=== PATIENT | female | born 1995 | race Caucasian/White ===

== ENCOUNTER 2017-04-07 21:03 | Outpatient (CLI) | payer OTHER ==
[~2017-04-07] VITALS: Ht 154.9 cm; Wt 73.9 kg
[~2017-04-07 21:03] MED LIST: ADDERALL20 MG PO; HYCODAN SYRUP480 ML PO; MOTRIN600 MG PO; PEN-VEE K,VEET500 MG PO; PREDNISONE50 MG PO
[2017-04-07 21:17] VITALS: BP 131/80
[2017-04-07 21:32] VITALS: BP 115/80
[2017-04-07 21:46] VITALS: BP 119/74
== END 2017-04-07 22:25 | disposition home or self-care (01) ==
LOC: LDRP-OP 21:03 → 2WEST 21:04 → LDRP-OP 05-22 15:36
DX: O36.8130 Decreased fetal movements, third trimester, not applicable or unspecified (principal); Z3A.38 38 weeks gestation of pregnancy
CPT/HCPCS: 59025; G0378

== ENCOUNTER 2017-04-20 20:35 | Inpatient (IN) | payer OTHER ==
[~2017-04-20] VITALS: Ht 154.9 cm; Wt 75.3 kg
[2017-04-20 21:04] VITALS: BP 126/82
[2017-04-20 21:19] VITALS: BP 130/90
[2017-04-20 21:35] VITALS: BP 132/81
[2017-04-20 21:49] VITALS: BP 134/87
[2017-04-20 22:55] VITALS: BP 130/78
[2017-04-20 23:42] VITALS: BP 129/79
[2017-04-21 06:33] LABS: BASOPHIL COUNT 0.1 K/uL (0-0.1); EOSINOPHIL (%) 0.5 % (0-5); EOSINOPHIL COUNT 0.1 K/uL (0-0.3); HEMATOCRIT 34.3 % (36.0-46.0); IMMATURE GRANULOCYTE (%) 0.7 % (0.0-0.7); IMMATURE GRANULOCYTE COUNT 0.1 K/uL; INSTRUMENT ABS NEUTROPHIL CT 14.5 K/uL; MCH 27.7 PG (29.0-34.0); MCHC 32.9 G/DL (30.0-36.0); MCV 84.1 FL (83-99); MEAN PLAT.VOLUME 11.9 uM^3 (9.5-12.4); MONOCYTE (%) 6.6 % (3-12); MONOCYTE COUNT 1.3 K/uL (0-0.8); NEUTROPHIL (%) 76.3 % (45-76); NEUTROPHIL COUNT 14.5 K/uL (1.8-6.4); PLATELET COUNT 361 K/uL (156-360); RBC DIS.WIDTH-CV 16.1 % (11.8-14.6); RBC DIS.WIDTH-SD 47.6 % (39-53); RED BLOOD COUNT 4.08 M/uL (3.80-5.20)
[2017-04-21 08:11] LABS: AMPHETAMINES QUANT VALUE 0 NG/ML; BARBITUATES QUANT VALUE 0 NG/ML; BENZODIAZEPINES QUANT VALUE 0 NG/ML; BENZODIAZEPINES, URINE SCREEN Negative (200 ng/mL); MARIJUANA QUANT VALUE 0 NG/ML; OPIATES QUANTITATIVE VALUE 0 NG/ML; PHENCYCLIDINE QUANT VALUE 0 NG/ML
[2017-04-21 09:30] VITALS: BP 123/76
[2017-04-21 15:50] VITALS: BP 125/78
[2017-04-21 22:34] VITALS: BP 114/68
[2017-04-22 07:20] VITALS: BP 120/81
[2017-04-22] MEDS ORDERED: IBUPROFEN800 MG PO (09:56)
== END 2017-04-22 11:30 | disposition home or self-care (01) | DRG 774 ==
LOC: LDRP-OP 20:35 → 2WEST 20:38 → LDRP-OP 05-23 22:53
PROVIDERS: Nurse Practitioner
DX: O62.3 Precipitate labor (principal); O99.323 Drug use complicating pregnancy, third trimester; F12.90 Cannabis use, unspecified, uncomplicated; O98.313 Other infections with a predominantly sexual mode of transmission complicating pregnancy, third trimester; A60.00 Herpesviral infection of urogenital system, unspecified; Z3A.39 39 weeks gestation of pregnancy; Z37.0 Single live birth; O26.893 Other specified pregnancy related conditions, third trimester; E28.2 Polycystic ovarian syndrome; O99.334 Smoking (tobacco) complicating childbirth; F17.200 Nicotine dependence, unspecified, uncomplicated
CPT/HCPCS: 80306 90; 85025